=== PATIENT | male | born 1960 | race Caucasian/White ===

== ENCOUNTER 2021-03-02 15:00 | Emergency (ER) | payer OTHER, SELFPAY ==
[2021-03-02 15:18] VITALS: BP 189/91; PULSE 89; RESP 17; TEMP 35.9; O2SAT 98; BMI 28.5
--- NOTE | 2021-03-02 17:14 | ED.ARRPALP ---
HPI - Arrhythmia/Palpitations General Chief Complaint: Arrhythmia/Palpitations Stated Complaint: couple days of chest wierdness, hx of ablasion Time Seen by Provider: 03/02/21 16:59 Source: patient Mode of arrival: Ambulatory History of Present Illness HPI narrative: Patient is a 60-year-old male. Has history of atrial fibrillation. Had an ablation performed. This was several years ago. Is not currently on any medication. For the past couple days he has had chest symptoms. It is somewhat difficult for him to describe. He states it feels different than his history of atrial fibrillation. He he states that it is not a pain. There is no shortness of breath. When the symptoms occurred they last for several minutes and then resolve. Not worse with palpation. Not worse with movement. Not worse with taking deep breaths. Has not tried anything for the symptoms. He initially wanted very minimal things performed because he states he is paying out of pocket. Related Data Home Medications Medication Instructions Recorded Confirmed No Known Home Medications 03/02/21 03/02/21 Allergies Allergy/AdvReac Type Severity Reaction Status Date / Time No Known Drug Allergies Allergy Verified 03/02/21 15:21 Review of Systems Constitutional Constitutional: Reports as per HPI and Reports system reviewed and no additional complaints, except as documented Cardiovascular Cardiovascular: Reports as per HPI and Reports system reviewed and no additional complaints, except as documented Respiratory Respiratory: Reports as per HPI and Reports system reviewed and no additional complaints, except as documented Gastrointestinal Gastrointestinal: Reports system reviewed and no additional complaints, except as documented Musculoskeletal Musculoskeletal: Reports system reviewed and no additional complaints, except as documented Integumentary/Breasts Skin/Breast: Reports system reviewed and no additional complaints, except as documented Neurologic Neurologic: Reports system reviewed and no additional complaints, except as documented Hematologic/Lymphatic On Anticoagulants: No Patient History Medical History Atrial fibrillation Social History Smoking Status: Never smoker Smoking Status: Never smoker alcohol intake frequency: other Substance Use Type: does not use Exam Initial Vital Signs Initial Vital Signs: Vital Signs Temperature 96.7 F L 03/02/21 15:18 Pulse Rate 89 03/02/21 15:18 Respiratory Rate 17 03/02/21 15:18 Blood Pressure 189/91 H 03/02/21 15:18 Pulse Oximetry 98 03/02/21 15:18 Const General: cooperative, healthy appearing, comfortable and well developed [facility] Head: normal to inspection and normocephalic Chest Chest: No crepitus and No tenderness Resp Effort & Inspection: normal respiratory effort Auscultation: clear to auscultation bilaterally Cardio Rate: regular rate Rhythm: regular rhythm GI Inspection: normal to inspection Skin General: no rashes or lesions noted Lesions: no lesions Neuro General: patient alert, patient awake, patient oriented x3 and moves all extremities Extrem General: normal to inspection and capillary refill normal Psych Appearance: grossly normal and well kempt Course Vital Signs Vital signs: Vital Signs - 8 hr 03/02/21 15:18 03/02/21 17:20 Temperature 96.7 F L Pulse Rate 89 77 Respiratory Rate 17 17 Blood Pressure 189/91 H 158/76 H Pulse Oximetry 98 99 MDM - Arrhythmia/Palpitations ECG Data Attestation: I personally reviewed and interpreted this ECG as follows: Interpretation: Sinus rhythm Ventricular rate of 77 Normal axis Normal QRS Normal QTC No ST T wave changes MDM Narrative Medical decision making narrative: Patient not currently having symptoms. EKG is unremarkable. Patient would like to hold on further workup because he is paying [id number]. He understands concerns about potential cardiac etiology although given his presentation I feel that it is unlikely. We did discuss checking labs. 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 Discharge Plan Departure Patient Disposition: Home Clinical Impression: Atypical chest pain Instructions: DI for Atypical Chest Pain Activity Restrictions/Additional Instructions: I do recommend that you contact your primary doctor for follow-up. Continue all of your medications as directed. Return to the emergency department for any new or worsening symptoms. Prescriptions: No Action No Known Home Medications 0RF
[2021-03-02 17:20] VITALS: BP 158/76; PULSE 77; RESP 17; O2SAT 99
== END 2021-03-02 17:21 | disposition home or self-care (01) ==
PROVIDERS: Emergency Provider Emergency Medicine
DX: R07.9 Chest pain, unspecified (principal)
CPT/HCPCS: 93005; 99282; 99283

== ENCOUNTER → 2021-03-05 08:03 | Outpatient (CLI) | payer OTHER, SELFPAY ==
[2021-03-05 08:30] LABS: Add Manual Diff / Slide Review NO; Basophils Absolute Auto 0 /uL (0-100); Basophils Percent Auto 0.6 % (0-2); Eosinophils Absolute Auto 400 /uL (0-450); Eosinophils Percent Auto 6.3 % (2-4); Hematocrit 43.9 % (41-53); Hemoglobin 14.7 g/dL (13.5-17.5); Lymphocytes Absolute Auto 1700 /uL (1100-4500); Mean Corpuscular HGB Conc 33.5 % (30-36); Mean Corpuscular Hemoglobin 27.4 PG (26-34); Mean Corpuscular Volume 81.8 fL (80-100); Monocytes Absolute Auto 600 /uL (0-900); Monocytes Percent Auto 9.8 % (3-14); Neutrophils Absolute Auto 3100 /uL (1500-7000); Neutrophils Percent Auto 53.3 % (50-75); Platelet Count 317 X10^3/uL (150-400); Red Blood Cell Count 5.37 X10^6/uL (4.5-5.9); Red Cell Distribution Width 14.6 % (11.6-14.8); White Blood Cell Count 5.8 X10^3/uL (4.5-11.0)
[2021-03-05 08:40] LABS: Creatine Kinase 177 U/L (55-170); D Dimer < 200 ng/mL (<230)
[2021-03-05 08:44] LABS: COVID19 -Nasal RAPID Negative (Negative)
[2021-03-05 08:53] LABS: Troponin I 0.069 ng/mL (0.01-0.034)
[2021-03-05 08:56] LABS: CKMB % Relative Index 1.3 % (1.5-5.0); Creatine Kinase MB 2.29 ng/mL (<2.37)
[2021-03-05 09:17] LABS: Thyroid Stimulating Hormone 1.34 uIU/mL (0.47-4.68)
== END ==
PROVIDERS: Visit Provider Physician Assistant
DX: R07.89 Other chest pain (principal); Z20.822 Contact with and (suspected) exposure to COVID-19
CPT/HCPCS: 36415; 80048; 82550; 82553; 84443; 84484; 85025; 85379; 87635

== ENCOUNTER → 2021-03-05 08:13 | Outpatient (CLI) | payer OTHER, SELFPAY ==
[2021-03-05 09:35] LABS: BUN Creatinine Ratio 18.2 (6-22); Blood Urea Nitrogen 20 mg/dL (9-20); Calcium 10.3 mg/dL (8.4-10.2); Carbon Dioxide 26 mmol/L (22-32); Chloride 106 mmol/L (98-107); Estimated Glomerular Filt Rate > 60.0 mL/min (>60); Glucose 87 mg/dL (80-110); HEMOLYSIS < 15 (0-50); Potassium 4.1 mmol/L (3.4-5.1); Sodium 140 mmol/L (137-145)
== END ==
PROVIDERS: Referring Provider Physician Assistant; Visit Provider Physician Assistant
DX: R07.89 Other chest pain (principal)
CPT/HCPCS: 80048

== ENCOUNTER → 2021-03-11 10:33 | Outpatient (CLI) | payer OTHER, SELFPAY ==
[2021-03-11 14:11] LABS: COVID19 -Nasal RAPID Negative (Negative)
== END ==
PROVIDERS: Visit Provider Family Medicine
DX: Z01.818 Encounter for other preprocedural examination (principal); Z20.822 Contact with and (suspected) exposure to COVID-19
CPT/HCPCS: 87635

== ENCOUNTER → 2021-03-14 13:13 | Outpatient (CLI) | payer OTHER, SELFPAY ==
--- NOTE | 2021-03-14 13:15 | DI.NM.S_ITS ---
PROCEDURE: NM CORTEZ PERF SPECT REST & STR Rest and exercise myocardial perfusion SPECT with gated imaging and ejection fraction RADIOPHARMACEUTICAL: 25.3 mCi Tc-99m sestamibi IV at rest and 24.9 mCi Tc-99m sestamibi IV at peak exercise. A two day-protocol was performed. INDICATIONS: exertional chest discomfort TECHNIQUE: Radiopharmaceutical was injected at peak stress test, and also at rest. SPECT images were obtained. SPECT myocardial perfusion images were displayed in short axis, horizontal long axis, and vertical long axis views. Gated images were reviewed using [employer] software. COMPARISON: None. CARDIAC STRESS: A standard [facility] treadmill exercise tolerance test was performed by the patient under the supervision of an attending staff. The patient exercised for 4 minutes and 52 seconds; functional aerobic impairment (SAMINA) is +38%. Hemodynamic data: There is normal blood pressure and heart rate response to exercise stress. Patient achieved 89% of maximum predicted heart rate at peak exercise. Symptoms: Patient had chest pain during exercise that resolved during recovery. EKG: Mild downsloping ST depressions during recovery; frequent PVCs during recovery. FINDINGS: Raw data: There is good myocardial labeling by radiotracer. No significant motion artifacts. Suek-[id number]-[id number] ratio is 0.4 (normal is less than 0.38 for sestamibi tracer, and less than 0.50 for thallium tracer). Left ventricle function: Gated images demonstrate normal left ventricle wall motion at rest and mild hypokinesis of the apex and distal septum post stress. No transient ischemic dilation; TID is 1.57 (normal less than 1.3). The left ventricle resting end-diastolic volume is 101 mL. Left ventricle stress ejection fraction is 72% at rest and 54% post stress; normal values are above 45%. Myocardial perfusion: There is large, severe reversible perfusion defect in the distal anterior wall, the apex, and the septum consistent with large amount of ischemia. SSS 29, SRS 7. IMPRESSION: High risk, abnormal treadmill nuclear stress test with ischemia in the LAD territory but left main disease is also possible given transient ischemic dilatation. 1) There is large, severe reversible perfusion defect in the distal anterior wall, the apex, and the septum consistent with large amount of ischemia in the LAD territory. SSS 29, SRS 7. 2) Normal left ventricular function drops post exercise from 72% to 54% with stress induced hypokinesis of the distal septum and the apex. 3) TID ratio of 1.57, suggesting possibility of left main disease as well. 4) Angina with exercise. 5) ST depressions suggestive of ischemia. 6) Reduced exercise tolerance (7.0 METs, SAMINA +38%). Target heart rate achieved. 7) No prior nuclear stress test available for comparison. Dictated by: Tee Guido MD on 03/15/2021 at 13:19 Approved by: Tee Guido MD on 03/15/2021 at 13:26
--- NOTE | 2021-03-14 14:31 | PM.TREADMILL ---
Cardiac Stress Test Report Referral & Results Date Patient Seen: 03/14/21 Requesting provider: Jim Padgett Indication: Chest pain Rest ECG: Unremarkable Procedure Note: Today following both written and verbal informed consent the patient was exercised according to a standard [employer] protocol patient went for a total of 4 minutes 52 seconds achieving a maximum heart rate of 142 maximum systolic blood pressure of 168. This is approximately 7.0 METS. Exercise was terminated at this point because of inability the patient to continue due to chest pain and or throat discomfort (which is his presenting symptom) Patient was also given Cardiolite through a previously started Hep-Lock IV by the diagnostic imaging staff approximately 1 minute prior to the cessation of exercise. With exercise there was some ST segment flattening in leads V5 V6 but as patient began to have more persistent symptoms he also developed other supraventricular arrhythmia or what appears to be more of a conduction change with narrow complex QRS. I would necessarily call this a true SVT maybe more of an atrial tachycardia. With cessation of exercise and recovery portion of the test he did develop more widespread ST-T segment changes including T-wave inversion in the far lateral leads and inferior leads. There is really no ST segment depression but this downsloping T-wave inversion etcetera. With this his symptoms slowly began to resolve His Function aerobic impairment rates about 30% on the sedentary scale Please see perfusion imaging as well Impression: Abnormal ST-T changes with exercise as above suggestive of lateral/inferior lateral ischemia Conduction system disturbance as above as well Please see perfusion imaging report as well Please note: Actual ECG tracings can be found in the PACS system.
== END ==
PROVIDERS: PCP Family Medicine; Referring Provider Family Medicine; Visit Provider Family Medicine
DX: R07.89 Other chest pain (principal); I48.91 Unspecified atrial fibrillation; R94.39 Abnormal result of other cardiovascular function study
CPT/HCPCS: 78452; 93016; 93017; 93018; A9502